=== PATIENT | female | born 1935 | race Caucasian/White ===

== ENCOUNTER 2017-11-04 21:32 | Emergency (ER) | payer MEDICARE ==
[~2017-11-04] VITALS: Ht 157.5 cm; Wt 90.7 kg
[~2017-11-04 21:32] MED LIST: ALPR0.25 PO; ALPR1TAB6 PO; ASPI-482 PO; ATOR40TA59 PO; CEPH-264 PO; CHOL10002 PO; CYAN10002 IM; CYCL10TA2 PO; DIPH25CA58 PO; FENO145T PO; FERR-36 PO; FERROUS GLUCON325 M1 PO; FLUT1DIS3 IH; FURO-68 PO; GLIM4TAB2 PO; HYDR-2762 PO; INSU100I13 SQ; INSU100I17 SQ; LEVO25TA4 PO; LORA10TA3 PO; METF500T16 PO; METO-269 PO; MULT-328 PO; NITR0.4T22 SL; NITR100C6 PO; POTA20PA21 PO; SERT100T PO; SIMV40TA PO; SITA50TA PO; Sulfamethoxazole/Trimethoprim PO; THYROID PILL; TIOT18CA IH; TRAM50TA PO; VALS80TA3 PO; [UNRECOGNIZED DRUG - CODE] PO
--- NOTE | 2017-11-04 22:42 | PHYS DOC ---
Past Medical History Past Medical History: CAD, Diabetes-Type II, Hypertension, Stroke Past Surgical History: Other Additional Past Surgical Histo: unknown Alcohol Use: None Drug Use: None Adult General Chief Complaint Chief Complaint: LOWER EXTREMITY EDEMA HPI HPI Patient is a 82 year old female who presents with bilateral foot ache described as a dull, at times severe pain. She states that the first time that she noticed this was years ago. She is a diabetic. She states that she has never mentioned this to her doctor. She states that over the past couple of years and has slowly worsened. She does admit to chronic bilateral lower extremity edema that she states is annoying but has not changed recently and is not painful except for in the feet. Review of Systems Review of Systems Constitutional: Denies fever or chills Respiratory: Denies cough or shortness of breath Cardiovascular: No additional information not addressed in HPI, no chest pain GI: Denies abdominal pain, nausea, vomiting, bloody stools or diarrhea Integument: Denies rash or skin lesions Neurologic: Denies headache, focal weakness or sensory change All other systems were reviewed and found to be within normal limits, except as documented in this note. Current Medications Current Medications Current Medications Medications (Trade) Dose Ordered Sig/Tiana Start Time Stop Time Status Last Admin Dose Admin Dextrose (Dextrose 50%-Water Syringe) 25 gm 1X ONCE 11/05/17 00:15 11/05/17 00:17 DC 11/05/17 00:27 25 GM Fentanyl Citrate (Fentanyl 2ml Vial) 50 mcg 1X ONCE 11/04/17 22:45 11/04/17 22:46 DC 11/04/17 23:12 50 MCG Furosemide (Lasix) 40 mg 1X ONCE 11/05/17 00:15 11/05/17 00:17 DC 11/05/17 00:27 40 MG Gabapentin (Neurontin) 300 mg ONCE ONCE 11/04/17 22:45 11/04/17 22:46 DC 11/04/17 23:12 300 MG Insulin Human Regular (HumuLIN R VIAL) 10 unit 1X ONCE 11/05/17 00:15 11/05/17 00:17 DC 11/05/17 00:25 10 UNIT Sodium Bicarbonate (Sodium Bicarb Adult 8.4% Syr) 50 meq 1X ONCE 11/05/17 00:15 11/05/17 00:17 DC 9/12/18 00:27 50 MEQ Sodium Bicarbonate (Sodium Bicarb Ped 8.4% Syr) 10 meq 1X ONCE 11/05/17 00:00 11/05/17 00:01 UNV Allergies Allergies Allergies Coded Allergies Type Severity Reaction Last Updated Verified Penicillins Allergy Intermediate Hives 12/23/13 Yes Physical Exam Physical Exam GENERAL: Awake, alert, no acute distress HEAD/EYES: Normocephalic, EOMI ENT Airway patent, mucous membranes moist NECK: Trachea midline, no JVD RESP: No respiratory distress, symmetrical expansion CV: Normal peripheral perfusion , mildly tender lateral feet without trauma, skin intact, no cellulitis, the lower extremities are both swollen, not necessarily pitting edema however, nontender ABD/GI: Non distended SKIN: Warm, dry NEURO: Normal motor observed PSYCH: Cooperative, appropriate affect Current Patient Data Vital Signs Vital Signs Date Time Temp Pulse Resp B/P (MAP) Pulse Ox O2 Delivery O2 Flow Rate FiO2 11/04/17 23:12 18 100 Nasal Cannula 4.0 11/04/17 22:25 97.6 78 205/86 (125) 97.6 Hypertensive initially, likely secondary to pain but will recheck frequently throughout ed stay Lab Values Laboratory Tests Test 11/04/17 23:00 11/05/17 01:25 White Blood Count 9.8 x10^3/uL (4.0-11.0) Red Blood Count 2.80 x10^6/uL (3.50-5.40) L Hemoglobin 8.6 g/dL (12.0-15.5) L Hematocrit 26.5 % (36.0-47.0) L Mean Corpuscular Volume 95 fL (79-100) Mean Corpuscular Hemoglobin 31 pg (25-35) Mean Corpuscular Hemoglobin Concent 33 g/dL (31-37) Red Cell Distribution Width 13.1 % (11.5-14.5) Platelet Count 266 x10^3/uL (140-400) Neutrophils (%) (Auto) 66 % (31-73) Lymphocytes (%) (Auto) 19 % (24-48) L Monocytes (%) (Auto) 10 % (0-9) H Eosinophils (%) (Auto) 4 % (0-3) H Basophils (%) (Auto) 1 % (0-3) Neutrophils # (Auto) 6.5 x10^3uL (1.8-7.7) Lymphocytes # (Auto) 1.9 x10^3/uL (1.0-4.8) Monocytes # (Auto) 1.0 x10^3/uL (0.0-1.1) Eosinophils # (Auto) 0.4 x10^3/uL (0.0-0.7) Basophils # (Auto) 0.1 x10^3/uL (0.0-0.2) Sodium Level 140 mmol/L (136-145) 142 mmol/L (136-145) Potassium Level 6.5 mmol/L (3.5-5.1) *H 5.6 mmol/L (3.5-5.1) H Chloride Level 103 mmol/L (98-107) 104 mmol/L (98-107) Carbon Dioxide Level 31 mmol/L (21-32) 32 mmol/L (21-32) Anion Gap 6 (6-14) 6 (6-14) Blood Urea Nitrogen 29 mg/dL (7-20) H 30 mg/dL (7-20) H Creatinine 2.3 mg/dL (0.6-1.0) H 2.5 mg/dL (0.6-1.0) H Estimated GFR (Cockcroft-Gault) 20.3 18.4 BUN/Creatinine Ratio 13 (6-20) 12 (6-20) Glucose Level 135 mg/dL (70-99) H 55 mg/dL (70-99) L Calcium Level 9.0 mg/dL (8.5-10.1) 8.9 mg/dL (8.5-10.1) Total Bilirubin 0.5 mg/dL (0.2-1.0) Pending Aspartate Amino Transferase (AST) 18 U/L (15-37) Pending Alanine Aminotransferase (ALT) 20 U/L (14-59) Pending Alkaline Phosphatase 80 U/L (46-116) Pending Total Protein 7.5 g/dL (6.4-8.2) Pending Albumin 3.4 g/dL (3.4-5.0) Pending Albumin/Globulin Ratio 0.8 (1.0-1.7) L Pending Laboratory Tests 11/04/17 23:00 Laboratory Tests 11/04/17 23:00 11/05/17 01:25 EKG EKG [] Radiology/Procedures Radiology/Procedures [] Course & Med Decision Making Course & Med Decision Making Pertinent Labs and Imaging studies reviewed. (See chart for details) []Ddx: Suspected diabetic peripheral neuropathy, will rule out DVT with ultrasound, check kidney function/liver function and provide relief with recheck of blood pressure 1:56 AM. Patient has had a significant improvement in her lower extremity pain. DVT ultrasound negative. Her hyperkalemia is likely multifactorial. She is on a 40 mEq potassium per day supplement with her Lasix. Likely her hyperkalemia secondary to chronic renal insufficiency as well as potassium supplementation. I discussed with her extensively the serious nature of hyperkalemia and that admission for further evaluation as an option. However, patient is on hospice and wishes to be discharged. She understands to not take her potassium supplement for the next 2-3 days or at least until she can get her potassium rechecked. She will continue to take her Lasix daily. I will start her on gabapentin for what is likely a peripheral neuropathy from diabetes. Advised to return immediately if she has any new or worsening symptoms. She is stable for discharge and agreeable to this plan. Dragon Disclaimer Dragon Disclaimer This electronic medical record was generated, in whole or in part, using a voice recognition dictation system. Departure Departure Impression: Primary Impression: Peripheral neuropathy Additional Impressions: Pain in both feet Chronic renal disease Acute hyperkalemia Disposition: HOME, SELF-CARE Condition: STABLE Referrals: RICHY ELI MD (PCP) Patient Instructions: Diabetic Neuropathy, Hyperkalemia Additional Instructions: DISCUSSED, HAVE YOUR POTASSIUM CHECKED THIS WEEK BY YOUR DOCTOR AND STOP TAKING YOUR POTASSIUM SUPPLEMENT. Problem Qualifiers MARIAN BURKS DO Nov 04, 2017 22:42
[2017-11-04] MEDS ORDERED: GABAPENTIN 300 MG CAPSULE. PO ONE (22:45)
[2017-11-04] MEDS ORDERED: fentaNYL PF VIAL 100 MCG/2 ML VIAL IV ONE (22:45)
[2017-11-04 23:25] LABS: BASO # 0.1 x10^3/uL (0.0-0.2); BASO % 1 % (0-3); EOS # 0.4 x10^3/uL (0.0-0.7); EOS % 4 % (0-3); HEMATOCRIT 26.5 % (36.0-47.0); HEMOGLOBIN 8.6 g/dL (12.0-15.5); LYMPH # 1.9 x10^3/uL (1.0-4.8); LYMPH % 19 % (24-48); MEAN CORPUSCULAR HEMOGLOBIN 31 pg (25-35); MEAN CORPUSCULAR HGB CONC 33 g/dL (31-37); MEAN CORPUSCULAR VOLUME 95 fL (79-100); MONO % 10 % (0-9); NEUT # 6.5 x10^3uL (1.8-7.7); NEUT % 66 % (31-73); PLATELET COUNT 266 x10^3/uL (140-400); RED CELL DISTRIBUTION WIDTH 13.1 % (11.5-14.5); WHITE BLOOD COUNT 9.8 x10^3/uL (4.0-11.0)
--- NOTE | 2017-11-04 23:31 | RAD ---
Ultrasound venous Doppler INDICATION:BILAT LEG SWELLING PAIN, TECHNIQUE: Grayscale, color Doppler and spectral waveform ultrasound images of the bilateral lower extremities deep veins obtained. COMPARISON: None FINDINGS: The interrogated deep veins are compressible and demonstrate evidence of blood flow with normal respiratory variation and response to augmentation. Diffuse bilateral lower extremity soft tissue edema. IMPRESSION: No sonographic evidence of acute DVT of the bilateral lower extremity deep veins. Electronically signed by: Matt Lance DO (11/04/2017 11:28 PM) [facility]
[2017-11-04 23:35] LABS: ALBUMIN 3.4 g/dL (3.4-5.0); ALBUMIN/GLOBULIN RATIO 0.8 (1.0-1.7); CREATININE 2.3 mg/dL (0.6-1.0); GFR 20.3; TOTAL BILIRUBIN 0.5 mg/dL (0.2-1.0); TOTAL PROTEIN 7.5 g/dL (6.4-8.2)
[2017-11-04 23:39] LABS: POTASSIUM 6.5 mmol/L (3.5-5.1)
[2017-11-05] MEDS ORDERED: SODIUM BICARB PED 8.4% 10 MEQ/10 ML DISP.SYRIN. IV ONE
[2017-11-05] MEDS ORDERED: DEXTROSE 50% 25 GM / 50ML DISP.SYRIN. IV ONE (00:15)
[2017-11-05] MEDS ORDERED: FUROSEMIDE 40 MG/4 ML VIAL. IVP ONE (00:15)
[2017-11-05] MEDS ORDERED: INSULIN REGULAR 100 UNIT/ML 3ML VIAL. IV ONE (00:15)
[2017-11-05] MEDS ORDERED: SODIUM BICARB ADULT 8.4% 50 MEQ/50 ML DISP.SYRIN. IV ONE (00:15)
[2017-11-05 01:52] LABS: CALCIUM 8.9 mg/dL (8.5-10.1); CREATININE 2.5 mg/dL (0.6-1.0); GFR 18.4; POTASSIUM 5.6 mmol/L (3.5-5.1)
[2017-11-05 02:00] LABS: ALBUMIN 3.3 g/dL (3.4-5.0); ALBUMIN/GLOBULIN RATIO 0.8 (1.0-1.7); TOTAL BILIRUBIN 0.5 mg/dL (0.2-1.0); TOTAL PROTEIN 7.3 g/dL (6.4-8.2)
[2017-11-05 02:04] VITALS: BP 165/74
[2017-11-05] MEDS ORDERED: GABA-586 PO (02:04)
--- NOTE | 2017-11-05 06:17 | EKG ---
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
== END 2017-11-05 02:35 | disposition home or self-care (01) ==
LOC: ER 21:32
DX: E11.42 Type 2 diabetes mellitus with diabetic polyneuropathy (principal); E11.22 Type 2 diabetes mellitus with diabetic chronic kidney disease; I12.9 Hypertensive chronic kidney disease with stage 1 through stage 4 chronic kidney disease, or unspecified chronic kidney disease; N18.9 Chronic kidney disease, unspecified; E87.5 Hyperkalemia; I25.10 Atherosclerotic heart disease of native coronary artery without angina pectoris; Z86.73 Personal history of transient ischemic attack (TIA), and cerebral infarction without residual deficits; Z88.0 Allergy status to penicillin
CPT/HCPCS: 36415; 80053; 85025; 93005; 93970; 96374; 96375; 99285; J1815; J1940; J3010; J7042